=== PATIENT | male | born 1975 | race Two or more races ===

== ENCOUNTER 2020-01-02 10:11 | Outpatient (CLI) | payer MEDICAID | END 2020-01-02 23:59 | disposition home or self-care (01) | LOC: LAB 10:11 | PROVIDERS: ATTEND Specialist | DX: Z01.812 Encounter for preprocedural laboratory examination (principal); Z11.59 Encounter for screening for other viral diseases | CPT/HCPCS: C9803; U0003 ==

== ENCOUNTER 2020-01-05 05:31 | Day surgery (SDC) | payer MEDICAID ==
[2020-01-05 05:56] LABS: APPEARANCE,URINE CLEAR (CLEAR); BILIRUBIN,URINE NEGATIVE (NEGATIVE); BLOOD, URINE NEGATIVE Ery/uL (NEGATIVE); COLOR,URINE YELLOW (YELLOW); KETONES,URINE NEGATIVE (NEGATIVE); LEUKOCYTE ESTERASE ,URINE TRACE (NEGATIVE); NITRITE, URINE NEGATIVE (NEGATIVE); PROTEIN,URINE NEGATIVE (NEGATIVE); UGLUCOSE NEGATIVE (NEGATIVE); UROBILINOGEN,URINE 0.2 EU/dL (0.2)
[2020-01-05 05:57] LABS: BASOPHILS % (AUTO) 0.5 % (0.0-2.0); EOSINOPHILS % (AUTO) 6.6 % (0.0-6.0); HEMATOCRIT 46 % (39-51); HEMOGLOBIN 15.5 g/dL (13.5-17.5); LYMPHOCYTES # (AUTO) 2.3 /CMM (0.8-4.8); LYMPHOCYTES % (AUTO) 33.9 % (20.0-44.0); MEAN CORPUSCULAR HGB CONC 33 g/dl (31.0-36.0); MEAN CORPUSCULAR VOLUME 87 fL (80-96); MONOCYTES # (AUTO) 0.6 /CMM (0.1-1.30); MONOCYTES % (AUTO) 8.6 % (2.0-12.0); NEUTROPHILS # (AUTO) 3.4 /CMM (1.8-8.9); NEUTROPHILS % (AUTO) 50.4 % (43.0-81.0); PLATELET COUNT (AUTO) 266 /CMM (150-450); RED BLOOD CELL COUNT(AUTO) 5.35 MIL/uL (4.5-6.0); WHITE BLOOD COUNT (AUTO) 6.7 K/uL (4.3-11.0)
[2020-01-05 05:59] LABS: BACTERIA,URINE Few /HPF (None Seen); RBC,URINE 0-2 /HPF (0-2); SQUAMOUS EPITHELIAL CELL,UR Rare /HPF (None Seen)
[2020-01-05 06:03] LABS: CALCIUM, SERUM 8.8 mg/dL (8.5-10.1); POTASSIUM 3.9 mmol/L (3.5-5.1)
[2020-01-05] MEDS ORDERED: ANESTHESIA TRAY IN PYXIS 1 EA TRAY MC ONE (06:05)
[2020-01-05] MEDS ORDERED: BACITRACIN 50000 UNITS/VIAL ONE (06:05)
[2020-01-05] MEDS ORDERED: BUPIVACAINE 0.5 % PF 150 MG/30 ML VIAL ONE (06:05)
[2020-01-05 06:09] LABS: ALBUMIN 4.4 g/dL (3.4-5.0); BILIRUBIN,TOTAL 0.6 mg/dL (0.2-1.0); TOTAL PROTEIN, SERUM 7.7 g/dL (6.4-8.2)
[2020-01-05] MEDS ORDERED: MIDAZOLAM HCL 2 MG/2ML VIAL ONE (06:09)
[2020-01-05] MEDS ORDERED: SEVOFLURANE 250 ML BOTTLE IH ONE (06:09)
[2020-01-05] MEDS ORDERED: HYDROMORPHONE 1 MG/1 ML DISP.SYRIN ONE ×2 (08:19→08:36)
[2020-01-05] MEDS ORDERED: FENTANYL PF 100MCG/2ML AMPUL ONE (08:23)
[2020-01-05] MEDS ORDERED: HYDROCODONE/APAP 10/325MG 1 EA TABLET ONE (08:57)
== END 2020-01-05 09:50 | disposition home or self-care (01) ==
LOC: DS 05:31
PROVIDERS: ATTEND Specialist
DX: S66.117A Strain of flexor muscle, fascia and tendon of left little finger at wrist and hand level, initial encounter (principal); X58.XXXA Exposure to other specified factors, initial encounter; Y93.89 Activity, other specified; Y92.89 Other specified places as the place of occurrence of the external cause; Y99.8 Other external cause status; M65.842 Other synovitis and tenosynovitis, left hand; E66.3 Overweight; I49.5 Sick sinus syndrome
CPT/HCPCS: 26370; 36415; 64831; 80053; 81001; 85025; 85610; 85730; 87086; 93005 ×2; J0690; J1100; J1170 ×2; J2250; J2405; J2704; J3010; J3490; 81000-TC